=== PATIENT | male | born 2005 | race Caucasian/White ===

== ENCOUNTER 2025-03-14 06:14 | Day surgery (SDC) | payer OTHER, SELFPAY ==
[2025-03-14] VITALS (7 sets, daily range): BP systolic 122–136; BP diastolic 74–86; BMI 28.6
[2025-03-14] MEDS: TYLENOL 1000 MG PO (13:52)
[2025-03-14] MEDS: NORMOSOL-R/PLASMALYTE-A 1000 IV (13:57)
--- NOTE | 2025-03-14 19:01 | W.IMMPOSTOP ---
Surgical Immed Post Op Note
-
Primary Surgeon: Nikolas Baker MD
Assisting Surgeon: SANTIAGO Cooney
Pre-op Diagnosis: right Yare[place]'s rupture
Post-op Diagnosis: right [place]'s partial rupture
Procedure Performed: right Yareli's debridement and repair
Anesthesia Type: general
Specimen / Cultures: none
Estimated Blood Loss: 5mL
Complications: none apparent
Operative Findings: longitudinal tearing and adhesions of [place]'s tendon
Tourniquet time: 64 minutes at 250 mmHg
Operative dictation #: [id number]
[2025-03-14] MEDS: ROXICODONE 5 MG PO (19:06)
== END 2025-03-14 19:21 | disposition home or self-care (01) ==
LOC: SDS 06:14
PROVIDERS: ATTENDING PHYSICIAN Student in an Organized Health Care Education/Training Program
DX: S86.011A Strain of right Achilles tendon, initial encounter (principal); X58.XXXA Exposure to other specified factors, initial encounter
CPT/HCPCS: 27650; C1776